=== PATIENT | male | born 1960 ===

== ENCOUNTER 2018-04-26 11:40 | Emergency (ER) | payer MEDICAID, OTHER ==
[2018-04-26 11:46] VITALS: BP 113/73; PULSE 87; RESP 18; TEMP 98.6; O2SAT 99
--- NOTE | 2018-04-26 12:06 | C.PDOC ---
History Of Present Illness Patient reports that daughter tried to dye his hair yesterday, he then developed redness and itching to scalp and face. Took benadryl last night and today. No respiratory issues or any other symptoms. Time Seen by Provider: 04/26/18 11:49 Chief Complaint (Nursing): Allergic Reaction Past Medical History Reviewed: Historical Data, Nursing Documentation, Vital Signs Vital Signs: Last Vital Signs Temp 98.6 F 04/26/18 11:42 Pulse 87 04/26/18 11:42 Resp 18 04/26/18 11:42 BP 113/73 04/26/18 11:42 Pulse Ox 99 04/26/18 11:42 - Medical History PMH: No Chronic Diseases Family History: States: Unknown Family Hx - Social History Hx Alcohol Use: No Hx Substance Use: No - Immunization History Hx Tetanus Toxoid Vaccination: No Hx Influenza Vaccination: No Hx Pneumococcal Vaccination: No Review Of Systems Except As Marked, All Systems Reviewed And Found Negative. Constitutional: Negative for: Fever Eyes: Negative for: Vision Change Cardiovascular: Negative for: Chest Pain Respiratory: Negative for: Shortness of Breath Gastrointestinal: Negative for: Nausea, Vomiting Skin: Positive for: Rash Neurological: Negative for: Altered Mental Status Physical Exam - Physical Exam Appears: Well, No Acute Distress Skin: Other (erythema/urticaria to scalp, bilateral cheeks, around bilateral eyes) Eye(s): bilateral: Other (conjunctival injection) Oral Mucosa: Moist Respiratory: Normal Breath Sounds, No Stridor, No Wheezing Gastrointestinal/Abdominal: Normal Exam Neurological/Psych: Oriented x3 Gait: Steady ED Course And Treatment O2 Sat by Pulse Oximetry: 99 Medical Decision Making Medical Decision Making: Patient advised to continue taking benadryl as needed for itching. Return to the ED for any new or worsening symptoms, especially for shortness of breath, wheezing, or any other respiratory symptoms. Disposition - Disposition Disposition Time: 12:05 Condition: STABLE Instructions: Contact Dermatitis (DC) - Clinical Impression Clinical Impression: Allergic contact dermatitis
== END 2018-04-26 12:24 | disposition home or self-care (01) ==
LOC: C.ER 11:40
DX: L23.9 Allergic contact dermatitis, unspecified cause (principal)